=== PATIENT | female | born 1945 | race Caucasian/White ===

== ENCOUNTER → 2016-08-29 | Outpatient (CLI) | payer OTHER | LOC: RAD 10:49 | DX: R05 Cough (principal) ==

== ENCOUNTER → 2017-09-18 | Outpatient (CLI) | payer OTHER | LOC: CAT 12:22 | DX: J47.9 Bronchiectasis, uncomplicated (principal); K76.89 Other specified diseases of liver; R91.8 Other nonspecific abnormal finding of lung field ==

== ENCOUNTER → 2021-01-25 | Outpatient (CLI) | payer OTHER ==
[~2021-01-25] VITALS: Ht 160 cm; Wt 62.6 kg
[~2021-01-25] MED LIST: APAP W/CODEINE1 TA2 PO; BUTALB-APAP-CA1 EACH PO; COLACE100 MG PO; LEVOTHYROXINE112 MC1 PO; PROAIR HFA8.5 GM INH; PROPRANOLOL 20M20 MG PO; ROSUVASTATIN CA20 MG PO; TUMS200 MG PO; VITAMIN B12-FO1 EAC1 PO; VITAMIN D3125 MC2 PO
[2021-01-25 13:37] VITALS: BP 153/91
[2021-01-25 13:54] VITALS: BP 153/91
--- NOTE | 2021-01-25 14:21 | NUR ---
Pain Clinic Assessment: 1. History of Osteoarthritis: CERVICAL SPINE History of Rheumatoid Arthritis: 2. Height: 5 ft. 3 in. 160.0 cm. Weight: 138.0 lb. oz. 62.596 kg. Patient's BMI: 24.5 3. Vital Signs: BP: 153/91 Pulse: 78 Resp: 18 Temp: 02 Sat: 98 ECG Mon: 4. Pain Intensity: 3 today avg pain is 5 5. Fall Risk: Dizziness: N Needs help standing or walking: N Fallen in the last 3 months: N Fall risk comments: 6. Patient on Blood Thinner: None 7. History of Hypertension: N 8. Opioid Therapy greater than 6 weeks: Y Opiate Contract Signed: 9. Risk Assessment Tool Provided: low 10. Functional Assessment Tool: 11. Recreational Drug Use: Never Drug Type: Tobacco Use: Former Smoker Tobacco Type: Cigarettes Amount or Packs/day: 1/2 PACK DLY How Many Years: 2 Alcohol Use: No Frequency: Quant:
== END ==
LOC: PAIN 12:58
PROVIDERS: ATTEND Anesthesiology Pain Medicine
DX: M54.2 Cervicalgia (principal); M54.50 Low back pain, unspecified; G43.909 Migraine, unspecified, not intractable, without status migrainosus; E78.1 Pure hyperglyceridemia; R73.03 Prediabetes; Z88.8 Allergy status to other drugs, medicaments and biological substances; Z79.899 Other long term (current) drug therapy

== ENCOUNTER → 2021-03-06 | Outpatient (CLI) | payer OTHER ==
[~2021-03-06] VITALS: Ht 160 cm; Wt 62.3 kg
[2021-03-06 10:36] VITALS: BP 152/96
--- NOTE | 2021-03-06 10:48 | NUR ---
Pain Clinic Assessment: 1. History of Osteoarthritis: CERVICAL SPINE History of Rheumatoid Arthritis: 2. Height: 5 ft. 3 in. 160.0 cm. Weight: 137.4 lb. oz. 62.324 kg. Patient's BMI: 24.3 3. Vital Signs: BP: 152/96 Pulse: 99 Resp: 16 Temp: 02 Sat: 98 ECG Mon: 4. Pain Intensity: 6 5. Fall Risk: Dizziness: N Needs help standing or walking: N Fallen in the last 3 months: N Fall risk comments: 6. Patient on Blood Thinner: None 7. History of Hypertension: N 8. Opioid Therapy greater than 6 weeks: Y Opiate Contract Signed: 9. Risk Assessment Tool Provided: low 10. Functional Assessment Tool: 11. Recreational Drug Use: Never Drug Type: Tobacco Use: Former Smoker Tobacco Type: Amount or Packs/day: How Many Years: Alcohol Use: No Frequency: Quant:
== END | disposition home or self-care (01) ==
LOC: PAIN 07:04
PROVIDERS: ATTEND Anesthesiology Pain Medicine
DX: M54.81 Occipital neuralgia (principal); G89.29 Other chronic pain; E78.00 Pure hypercholesterolemia, unspecified; E05.00 Thyrotoxicosis with diffuse goiter without thyrotoxic crisis or storm; G43.909 Migraine, unspecified, not intractable, without status migrainosus; K21.9 Gastro-esophageal reflux disease without esophagitis; E78.1 Pure hyperglyceridemia; Z98.890 Other specified postprocedural states; Z79.899 Other long term (current) drug therapy; Z90.710 Acquired absence of both cervix and uterus; Z87.891 Personal history of nicotine dependence; Z88.8 Allergy status to other drugs, medicaments and biological substances